=== PATIENT | male | born 1960 | race Caucasian/White ===

== ENCOUNTER 2025-08-31 10:41 | Outpatient (RCR) | payer OTHER, SELFPAY | END 2025-09-25 23:59 | disposition home or self-care (01) | LOC: SPT 10:41 | PROVIDERS: Visit Provider Nurse Practitioner Family | DX: M25.511 Pain in right shoulder (principal) | CPT/HCPCS: 97110; 97161 ==

== ENCOUNTER 2025-09-26 05:00 | Outpatient (RCR) | payer OTHER, SELFPAY | END 2025-10-25 23:59 | disposition home or self-care (01) | LOC: SPT 05:00 | PROVIDERS: Visit Provider Nurse Practitioner Family | DX: M25.511 Pain in right shoulder (principal) | CPT/HCPCS: 97110 ==

== ENCOUNTER 2025-10-26 05:00 | Outpatient (RCR) | payer OTHER, SELFPAY | END 2025-11-25 23:59 | disposition home or self-care (01) | LOC: SPT 05:00 | PROVIDERS: Visit Provider Nurse Practitioner Family | DX: M25.511 Pain in right shoulder (principal) | CPT/HCPCS: 97110 ==